=== PATIENT | female | born 1960 | race Caucasian/White ===

== ENCOUNTER 2018-08-12 10:08 | Outpatient (CLI) | payer BC ==
--- NOTE | 2018-08-12 10:48 | RAD ---
KUB: 08/12/2018 COMPARISON: 04/21/2016 HISTORY: Renal stone disease FINDINGS: There are 2 faint calcifications in the left upper quadrant, one measuring 3-4 mm just supe rior to the 12th rib and one measuring in the 3 mm range, also just superior to the 12th rib. No calcifications are noted within the right upper quadrant. The bowel gas pattern appears nonobstructed. Mild bilateral hip degenerative change. No acute osseous abnormality. Lower lumbar spine facet hypertrophic change present. IMPRESSION: Findings suggesting subcentimeter left renal calculi.
--- NOTE | 2018-08-13 10:10 | MMO ---
Bilateral MAMMO Bilat Screen [facility]. CLINICAL HISTORY: Patient is 57 years old and is seen for screening. The patient has the following family history of breast cancer: maternal aunt, at age 50, malignant (generic). The patient has a history of Skin cancer. VIEWS: The views performed were: bilateral craniocaudal and bilateral mediolateral oblique. FILMS COMPARED: The present examination has been compared to prior imaging studies performed at [facility] on 11/26/2011, 01/26/2014, 01/29/2015 and 06/17/2016. This study has been interpreted with the assistance of computer-aided detection. MAMMOGRAM FINDINGS: There are scattered fibroglandular densities. Finding 1: There are stable benign appearing calcifications seen in both breasts. Finding 2: There are stable benign appearing densities seen in both breasts. There are no suspicious masses, suspicious calcifications, or new areas of architectural distortion. IMPRESSION: THERE IS NO MAMMOGRAPHIC EVIDENCE OF MALIGNANCY. A ROUTINE FOLLOW-UP MAMMOGRAM IN 1 YEAR IS RECOMMENDED. ACR BI-RADS Category 2 - Benign finding MAMMOGRAPHY NOTE: 1. A negative mammogram report should not delay a biopsy if a dominant of clinically suspicious mass is present. 2. Approximately 10% to 15% of breast cancers are not detected by mammography. 3. Adenosis and dense breasts may obscure an underlying neoplasm.
== END 2018-08-12 10:09 | disposition home or self-care (01) ==
LOC: SCSMAMMO 10:08
PROVIDERS: ATTEND Obstetrics & Gynecology
DX: N20.0 Calculus of kidney (principal); E83.52 Hypercalcemia
CPT/HCPCS: 36415; 74018; 77067; 83970

== ENCOUNTER 2019-01-27 10:48 | Outpatient (CLI) | payer BC ==
--- NOTE | 2019-01-27 11:07 | RAD ---
3 views right shoulder: 01/27/2019 COMPARISON: None HISTORY: Fall, trauma, pain FINDINGS: No widening of the acromioclavicular or coracoclavicular interspace. There is a small calci fication adjacent to the lateral aspect of the humeral head measuring 6 mm. This may be on the basis of calcific tendinosis. No acute fracture or dislocation. IMPRESSION: Possible calcific tendinosis. No acute fracture or dislocation.
--- NOTE | 2019-01-27 11:08 | RAD ---
Final lateral imaging of right humerus: 01/27/2019 COMPARISON: None HISTORY: Fall, pain FINDINGS: No evidence for a fracture of the right humerus. IMPRESSION: No humeral fracture seen.
== END 2019-01-27 10:49 | disposition home or self-care (01) ==
LOC: SCSRAD 10:48
PROVIDERS: ATTEND Family Medicine
DX: M25.511 Pain in right shoulder (principal)

== ENCOUNTER 2019-02-25 10:59 | Outpatient (CLI) | payer BC ==
--- NOTE | 2019-02-25 16:07 | MRI ---
MR OF THE RIGHT SHOULDER WITHOUT CONTRAST: 02/25/19 INDICATION: Right shoulder pain after fall. COMPARISON: Right shoulder radiograph dated 01/27/19. FINDINGS: There is a focus of calcific tendinosis seen within the anterior infraspinatus tendon measuring 6 x 6 mm. There is moderate tendinosis of the supraspinatus and infraspinatus. There is moderate tendinosi s of the intra-articular bypass tendon. There is a large SLAP tear involving the anterior, superior, posterior superior glenoid labrum. There is tear extension into the biceps anchor complex on image 1 4 of series 4. Component of tear extension to the long head of the biceps tendon is not excluded. Bic eps tendon is located. There is prominent fatty atrophy of the Teres minor. Deltoid musculature appe ars within normal limits. There is moderate AC joint osteoarthrosis with an inferior projecting osteo phyte from the distal clavicle causing mild encroachment on the subjacent supraspinatus. The inferior glenohumeral labral ligamentous complex appears intact. Glenohumeral articular surface is normal [place] earing. IMPRESSION: 1. Large SLAP tear with tear extension of the biceps anchor complex and possibly into the proxim al long head of the biceps tendon. 2. Prominent tendinosis of the proximal long head of the biceps tendon. 3. Tendinosis of the supraspinatus and infraspinatus. 4. Prominent fatty atrophy of the Teres minor may reflect sequela of remote injury. 5. Moderate AC joint osteoarthrosis with mild encroachment. POS: OFF
== END 2019-02-25 11:00 | disposition home or self-care (01) ==
LOC: SCSMRI 10:59
PROVIDERS: ATTEND Orthopaedic Surgery
DX: M25.511 Pain in right shoulder (principal); S43.431A Superior glenoid labrum lesion of right shoulder, initial encounter; M75.81 Other shoulder lesions, right shoulder; M19.011 Primary osteoarthritis, right shoulder

== ENCOUNTER 2019-05-16 09:05 | Outpatient (CLI) | payer BC ==
--- NOTE | 2019-05-16 10:16 | ULT ---
BILATERAL RENAL ULTRASOUND: HISTORY: Renal calculi. COMPARISON: 04/21/2016. FINDINGS: Right kidney: Normal cortical echotexture. No hydronephrosis. Echogenic focus in the lower pole of th e right kidney measuring 0.9 cm may represent a cortical based calcification. Right kidney measurements: 6.0 x 11.2 x 5.3 cm. Left kidney: Normal cortical echotexture. No hydronephrosis demonstration of a hypoechoic focus in th e left renal cortex, likely representing a complex cyst measuring 2.3 x 2.2 x 2.0 cm. Previously, this lesion measured 1.4 x 1.2 x 1.4 cm. Left kidney measurements 7.2 x 12.0 x 6.6 cm. Urinary bladder: Normal mucosa. IMPRESSION: 1. No hydronephrosis. 2. Probable complex cyst in the left kidney which has increased in size. [facility]. Conversely, a short-term follow-up 6 month ultrasound. Transcribed Date/Time: 05/16/2019 10:26 AM
--- NOTE | 2019-05-16 10:29 | RAD ---
KUB: 05/16/2019 COMPARISON: 08/12/2018 HISTORY: Renal stone disease FINDINGS: There is a 3-4 mm calcification within the left upper quadrant just superior to the left 12 th rib suggesting a left renal stone. No calcification is seen overlying the right renal shadow. The bowel gas pattern appears nonobstructed. There is degenerative change involving the lower lumbar spine and bilateral hips. IMPRESSION: 3-4 mm calcification in the left upper quadrant suggest a subcentimeter left renal calcul us.
== END 2019-05-16 09:06 | disposition home or self-care (01) ==
LOC: SCSULT 09:05
PROVIDERS: ATTEND Urology
DX: N20.0 Calculus of kidney (principal); R93.5 Abnormal findings on diagnostic imaging of other abdominal regions, including retroperitoneum
CPT/HCPCS: 74018; 76770

== ENCOUNTER 2019-05-24 09:12 | Outpatient (CLI) | payer BC ==
--- NOTE | 2019-05-24 10:34 | CT ---
CT Abdomen W WO Con: 05/24/2019 12:00 AM CLINICAL HISTORY: Cystic mass in the left kidney. TECHNIQUE: Multiple contiguous axial images were obtained and a CT of the abdomen without and with IV contrast. Postcontrast images were obtained in the nephrographic and excretory phases. Sagittal and coronal reformats were performed. COMPARISON: Renal ultrasound 05/16/2019 FINDINGS: Kidneys and Urinary Tract: Right kidney and ureter: Small nonobstructing calcifications measuring up to 3 mm in size. No hydrone phrosis or hydroureter. No renal mass or other lesions. No urothelial lesions: no filling defect, dilation, stricture or wall thickening. Left kidney and ureter: Small nonobstructing calcific lesions measuring up to 4 mm in size. No hydron ephrosis or hydroureter. 2.1 cm cyst. No solid renal mass. No urothelial lesions: no filling defect, dilation, stricture or wall thickening. Remainder of Abdomen: Liver: Normal. Gallbladder and biliary system: Normal. No CT evident gallstones. No biliary ductal dilatation. Spleen: Normal. Pancreas: Normal. Adrenal glands: Normal. GI tract: Normal. Abdominal aorta and its major branches: Atherosclerotic calcifications. No aneurysm. Peritoneum/retroperitoneum: Normal. No ascites. No adenopathy. Body wall and musculoskeletal: Normal. Visualized lower thorax: Normal. No pulmonary parenchymal mass or pleural effusion. IMPRESSION: 1. Bilateral nonobstructing kidney stones 2. Left renal cyst
== END 2019-05-24 09:13 | disposition home or self-care (01) ==
LOC: SCSCT 09:12
PROVIDERS: ATTEND Urology
DX: N28.1 Cyst of kidney, acquired (principal); N20.0 Calculus of kidney
CPT/HCPCS: 74170; 82565

== ENCOUNTER 2019-10-20 09:49 | Outpatient (CLI) | payer BC ==
--- NOTE | 2019-10-20 11:11 | MMO ---
Bilateral MAMMO Bilat Screen [facility]. CLINICAL HISTORY: Patient is 58 years old and is seen for screening. The patient has the following family history of breast cancer: maternal aunt, at age 50, malignant (generic). The patient has a history of Skin cancer. VIEWS: The views performed were: bilateral craniocaudal; bilateral craniocaudal with tomosynthesis; bilateral mediolateral oblique; and bilateral mediolateral oblique with tomosynthesis. FILMS COMPARED: The present examination has been compared to prior imaging studies performed at [facility] on 08/12/2018, and at [facility] on 01/26/2014, 01/29/2015 and 06/17/2016. This study has been interpreted with the assistance of computer-aided detection. MAMMOGRAM FINDINGS: Finding 1: There are stable benign appearing calcifications seen in both breasts. Finding 2: There are stable benign appearing densities seen in both breasts. There are no suspicious masses, suspicious calcifications, or new areas of architectural distortion. IMPRESSION: THERE IS NO MAMMOGRAPHIC EVIDENCE OF MALIGNANCY. A ROUTINE FOLLOW-UP MAMMOGRAM IN 1 YEAR IS RECOMMENDED. THE RESULTS OF THIS EXAM WERE SENT TO THE PATIENT. ACR BI-RADS Category 2 - Benign finding MAMMOGRAPHY NOTE: 1. A negative mammogram report should not delay a biopsy if a dominant of clinically suspicious mass is present. 2. Approximately 10% to 15% of breast cancers are not detected by mammography. 3. Adenosis and dense breasts may obscure an underlying neoplasm. Reported by: YURIY AVILES MD Electonically Signed: [id number]
== END 2019-10-20 09:50 | disposition home or self-care (01) ==
LOC: BICMAMMO 09:49
PROVIDERS: ATTEND Family Medicine
DX: Z12.31 Encounter for screening mammogram for malignant neoplasm of breast (principal); Z80.3 Family history of malignant neoplasm of breast; Z85.828 Personal history of other malignant neoplasm of skin
CPT/HCPCS: 77063; 77067